=== PATIENT | male | born 1985 | race Caucasian/White ===

== ENCOUNTER 2019-08-28 10:04 | Emergency (ER) | payer OTHER, SELFPAY ==
[2019-08-28 10:30] VITALS: BP 148/92; PULSE 101; RESP 20; TEMP 36.5; O2SAT 99
--- NOTE | 2019-08-28 10:46 | ED.URI ---
HPI - URI/Sore Throat General Chief Complaint: Upper Respiratory Infection Stated Complaint: SORE THROAT/COUGH/FEVER/HEADACHE Source: patient Mode of arrival: ambulatory Limitations: no limitations History of Present Illness HPI Narrative: 34-year-old male presents to urgent complaints of sinus pressure, dry cough, nasal congestion, runny nose, bodies, chills, nausea and fevers up to 100.8 for the past 2 days. Patient reports that his daughter was diagnosed with strep throat 1 week ago and he was then treated with Augmentin. Patient has also been taking [id number] cold medications with minimal relief. Patient denies vomiting, diarrhea, shortness of breath or wheezing. Patient is a non-smoker. MD elicited complaint: fever, cough, rhinorrhea, nasal congestion and sinus pain Onset (ago): day(s) (2) Exacerbating factors: nothing Relieving factors: nothing Associated symptoms: fever, chills, nasal congestion and cough Treatments prior to arrival: cold medicine Related Data Home Medications Medication Instructions Recorded Confirmed [id number] tablet PO 08/28/19 [Dianne-[place] Plus Day-Night] ibuprofen [Advil] 200 mg PO Q6H PRN 08/28/19 08/28/19 ropinirole 1 mg PO DAILY 08/28/19 08/28/19 Allergies Allergy/AdvReac Type Severity Reaction Status Date / Time No Known Allergies Allergy Verified 08/28/19 10:36 Review of Systems Review of Systems: All systems reviewed & are unremarkable except as noted in HPI and below Constitutional: Constitutional: Reports chills, Reports fever(s) and Denies weakness ENT: Denies dysphagia, Denies vertigo, Denies dizziness, Denies epistaxis, Reports nasal congestion and Denies sore throat Cardiovascular: Cardiovascular: Denies chest pain, Denies rapid heart rate and Denies radiating jaw, neck or arm pain Respiratory: Respiratory: Denies chest congestion, Reports cough, Denies dyspnea and Denies wheezing Gastrointestinal: Gastrointestinal: Denies constipation, Denies diarrhea, Reports nausea and Denies vomiting Neurologic: Denies vertigo, Denies dizziness and Denies syncope [facility] Surgical History Surgical History (Updated 08/28/19 @ 10:48 by Monik Akins APN) H/O hemorrhoidectomy Family History Family History Other Diabetes mellitus Family history of cardiovascular disease Family history of colonic diverticulitis Family history of malignant neoplasm Hypertension Social History Social History Smoking status: Former smoker Smoking end date: 07/04/13 Alcohol intake: current Exam Const: General: healthy appearing, no acute distress and alert Orientation/consciousness: patient oriented x3 HENMT: Ears: external ears normal and TM's normal bilaterally General nose exam: Nasal discharge present purulent Face and sinus: sinus tenderness Mouth: Yes moist mucous membranes Throat: uvula midline Neck: Neck: normal visual inspection Resp: Effort & Inspection: normal respiratory effort Auscultation: clear to auscultation bilaterally Cardio: Rate: regular rate Rhythm: regular rhythm Skin: General skin exam: normal color Rashes: no rashes Neuro: General: patient oriented x3, moves all extremities and no meningeal signs Extrem: General: normal to inspection Psych: Appearance: grossly normal Mental Status: mental status grossly normal Affect: normal affect Attitude: cooperative Thought content: Yes Normal thought content present Course Course Emergency Course: Negative influenza results discussed with patient. Patient agrees take medications as prescribed. Work excuse provided for patient. Patient agrees to proceed to emergency room if symptoms worsen. Vital Signs Vital signs: Vital Signs Temperature 36.5 C 08/28/19 10:30 Pulse Rate 101 H 08/28/19 10:30 Respiratory Rate 20 08/28/19 10:30 Blood Pressure 148/92 H
== END 2019-08-28 11:02 | disposition home or self-care (01) ==
PROVIDERS: Emergency Provider Nurse Practitioner Family; PCP Emergency Medicine
DX: J06.9 Acute upper respiratory infection, unspecified (principal)
CPT/HCPCS: 87804; 99213; G0463

== ENCOUNTER 2021-02-04 12:04 | Emergency (ER) | payer OTHER, SELFPAY ==
[2021-02-04 12:12] VITALS: BP 141/102; PULSE 98; RESP 16; TEMP 36.6; O2SAT 100
--- NOTE | 2021-02-04 12:35 | ED.URI ---
HPI - URI/Sore Throat General Chief Complaint: Upper Respiratory Infection Stated Complaint: Sore Throat,Chills Time Seen by Provider: 02/04/21 12:25 Source: patient and RN notes reviewed Mode of arrival: ambulatory Limitations: no limitations History of Present Illness HPI Narrative: Patient presents today complaining of sinus congestion, postnasal drip, sore throat, body aches, joint pain, chills and sweats since yesterday. Denies known fever. He has been taking Aleve, Mucinex, Tylenol with mild relief and currently rates pain 01/10. He has not been vaccinated against COVID-19. MD elicited complaint: sore throat and nasal congestion Related Data Home Medications Medication Instructions Recorded Confirmed No Home Medications 02/04/21 02/04/21 Allergies Allergy/AdvReac Type Severity Reaction Status Date / Time No Known Allergies Allergy Verified 02/04/21 12:16 Review of Systems Review of Systems: CONSTITUTIONAL: Denies fever. + Body aches, chills and sweats EYES: Denies visual changes, redness, or discharge. ENT: Denies rhinorrhea,or otalgia.+ Congestion postnasal drip, sore throat CARDIOVASCULAR: Denies chest pain, palpitations, or edema. RESPIRATORY: Denies cough or dyspnea. GASTROINTESTINAL: Denies abdominal pain, nausea, vomiting, or diarrhea. GENITOURINARY: Denies dysuria or hematuria. SKIN: Denies rash, itching, or wounds. MUSCULOSKELETAL: Denies back pain, or myalgia. + Joint aches NEUROLOGIC: Denies headache, numbness, tingling, or weakness. PSYCH: Denies depression or anxiety. [facility] Past Medical History Medical History (Updated 02/04/21 @ 13:01 by Felisa Ochoa, SENAIT, ) Restless leg syndrome Surgical History Surgical History H/O hemorrhoidectomy Family History Family History Other Diabetes mellitus Family history of cardiovascular disease Family history of colonic diverticulitis Family history of malignant neoplasm Hypertension Social History Social History Smoking status: Former smoker Smoking end date: 07/04/13 Alcohol intake: current Comments At time of signature, I have reviewed and agree with nursing past medical, surgical, social and family history unless otherwise noted. Please see nursing chart for further information. There is no relevant family history pertinent to the presenting complaint Exam Narrative: GENERAL: Mildly ill-appearing, well-nourished, and in no acute distress. HEAD: Normocephalic, atraumatic. EYES: EOMI. No redness or drainage. Conjunctivae normal. ENT: Mucous membranes pink and moist. Nares congested. TMs normal bilaterally. Throat erythematous with mild edema and white exudate bilaterally. Uvula midline. NECK: Normal AROM. Supple. No lymphadenopathy. CHEST: No respiratory distress. Clear to auscultation. HEART: Regular rate and rhythm. No murmur appreciated. Normal peripheral pulses. EXTREMITIES: Normal range of motion. No edema. SKIN: Warm, dry, no rash. Capillary refill normal. Normal skin turgor. NEURO: No focal deficits. Alert and oriented x3. Gait steady. PSYCH: Normal affect. No signs of depression or anxiety. Course Course Emergency Course: Declines Covid PCR at this time. Vital Signs Vital signs: Vital Signs Temperature 98 F 02/04/21 12:12 Pulse Rate 98 02/04/21 12:12 Respiratory Rate 16 02/04/21 12:12 Blood Pressure 141/102 H 02/04/21 12:12 Pulse Oximetry 100 02/04/21 12:12 Temperature 98 F 02/04/21 12:12 Pulse Rate 98 02/04/21 12:12 Respiratory Rate 16 02/04/21 12:12 Blood Pressure 141/102 H 02/04/21 12:12 Pulse Oximetry 100 02/04/21 12:12 Reviewed. Pt has been instructed to follow up with his PCP regarding his elevated blood pressure today. MDM - URI/Sore Throat Differential Diagnosis Diffe
== END 2021-02-04 13:10 | disposition home or self-care (01) ==
PROVIDERS: Emergency Provider Nurse Practitioner
DX: B34.9 Viral infection, unspecified (principal); Z20.822 Contact with and (suspected) exposure to COVID-19; G25.81 Restless legs syndrome
CPT/HCPCS: 87081; 87426; 87804; 87880; 99213; C9803; G0463

== ENCOUNTER 2021-02-10 18:35 | Emergency (ER) | payer OTHER, SELFPAY ==
[2021-02-10 18:44] VITALS: BP 138/93; PULSE 98; RESP 16; TEMP 37.1; O2SAT 98
--- NOTE | 2021-02-10 19:04 | ED.EAR ---
HPI - Ear Problem General Chief complaint: Ear Stated complaint: BLOOD IN EAR Time Seen by Provider: 02/10/21 18:48 Source: patient, RN notes reviewed and old records reviewed Mode of arrival: ambulatory Limitations: no limitations History of Present Illness HPI Narrative: Patient presents today complaining of bloody drainage from the left ear 2 days ago that lasted for 24 hours. Denies pain, but reports some pressure. He also reports possibly decreased hearing in the left ear. Patient was seen at [facility] on 02/04/2021 and diagnosed with a viral syndrome with a negative strep screen strep culture. States he noted some bloody drainage from his left ear on his pillow, took a Q-tip around the outer edge of his ear that was then saturated. States that that time he became scared and stopped all over the counter medications he had been taking. MD Complaint: ear discharge Related Data Home Medications Medication Instructions Recorded Confirmed No Home Medications 02/04/21 02/04/21 Allergies Allergy/AdvReac Type Severity Reaction Status Date / Time No Known Allergies Allergy Verified 02/04/21 12:16 Review of Systems Review of Systems: CONSTITUTIONAL: Denies body aches, fever, chills, or sweats. EYES: Denies visual changes, redness, or discharge. ENT: Denies rhinorrhea, congestion, sore throat, or otalgia.+ Left ear pressure and drainage CARDIOVASCULAR: Denies chest pain, palpitations, or edema. RESPIRATORY: Denies cough or dyspnea. GASTROINTESTINAL: Denies abdominal pain, nausea, vomiting, or diarrhea. GENITOURINARY: Denies dysuria or hematuria. SKIN: Denies rash, itching, or wounds. MUSCULOSKELETAL: Denies back pain, joint pain, or myalgia. NEUROLOGIC: Denies headache, numbness, tingling, or weakness. PSYCH: Denies depression or anxiety. [facility] Past Medical History Medical History Restless leg syndrome Surgical History Surgical History H/O hemorrhoidectomy Family History Family History Other Diabetes mellitus Family history of cardiovascular disease Family history of colonic diverticulitis Family history of malignant neoplasm Hypertension Social History Social History Smoking status: Former smoker Smoking end date: 07/04/13 Alcohol intake: current Comments At time of signature, I have reviewed and agree with nursing past medical, surgical, social and family history unless otherwise noted. Please see nursing chart for further information. There is no relevant family history pertinent to the presenting complaint Exam Narrative: GENERAL: Well-appearing, well-nourished, and in no acute distress. HEAD: Normocephalic, atraumatic. EYES: EOMI. No redness or drainage. Conjunctivae normal. ENT: Mucous membranes pink and moist. Nares clear. No rhinorrhea. Left TM is dull and erythematous without obvious visualized rupture. Ear canal is dry without debris or drainage. Patient did show a picture of a bloody Q-tip on his phone. NECK: Normal AROM. CHEST: No respiratory distress. EXTREMITIES: Normal range of motion. No edema. SKIN: Warm, dry, no rash. Capillary refill normal. Normal skin turgor. NEURO: No focal deficits. Alert and oriented x3. Gait steady. PSYCH: Normal affect. No signs of depression or anxiety. Course Vital Signs Vital signs: Vital Signs Temperature 98.8 F 02/10/21 18:44 Pulse Rate 98 02/10/21 18:44 Respiratory Rate 16 02/10/21 18:44 Blood Pressure 138/93 H 02/10/21 18:44 Pulse Oximetry 98 02/10/21 18:44 Temperature 98.8 F 02/10/21 18:44 Pulse Rate 98 02/10/21 18:44 Respiratory Rate 16 02/10/21 18:44 Blood Pressure 138/93 H 02/10/21 18:44 Pulse Oximetry 98 02/10/21 18:44 Reviewed. Pt has bee
== END 2021-02-10 19:41 | disposition home or self-care (01) ==
PROVIDERS: Emergency Provider Nurse Practitioner
DX: H66.012 Acute suppurative otitis media with spontaneous rupture of ear drum, left ear (principal); Z87.891 Personal history of nicotine dependence; G25.81 Restless legs syndrome
CPT/HCPCS: 99213; G0463